=== PATIENT | female | born 1955 | race Caucasian/White ===

== ENCOUNTER → 2021-07-24 | Outpatient (CLI) | payer BC ==
[2021-07-24 22:19] LABS: Hemoglobin A1C 5.5 % (4.0-6.0)
[2021-07-25 16:59] LABS: African American GFR (CKD) 46.2 (60.0-200.0); Anion Gap 15.9 mmol/L (4.00-12.00); BUN/Creat Ratio 17.86 Ratio (12.00-20.00); Calcium 10.4 mg/dL (8.7-10.3); Carbon Dioxide 22.1 mmol/L (21.6-31.8); Non-African American GFR(CKD) 39.9 (60.0-200.0); Potassium 4.4 mmol/L (3.5-5.5)
== END | disposition home or self-care (01) ==
LOC: LABWHC1 08:46
PROVIDERS: ATTEND Internal Medicine
DX: E03.9 Hypothyroidism, unspecified (principal); I10 Essential (primary) hypertension; R73.02 Impaired glucose tolerance (oral)
CPT/HCPCS: 36415; 80048; 83036; 84443; 84478